=== PATIENT | female | born 1975 | race Caucasian/White ===

== ENCOUNTER 2019-11-23 17:27 | Emergency (ER) | payer SELFPAY ==
[~2019-11-23] VITALS: Ht 162.6 cm; Wt 61.2 kg
[2019-11-23 17:38] VITALS: BP 116/77
[2019-11-23] MEDS ORDERED: diphenhydrAMINE HCL 50 MG CAPSULE ONE (17:44)
--- NOTE | 2019-11-23 17:59 | NUR ---
Patient discharged to home in stable condition. Written and verbal after care instructions given. Patient verbalizes understanding of instruction.
[2019-11-23] MEDS ORDERED: diphenhydrAMINE HCL 50 MG CAPSULE PO ONE (18:00)
== END 2019-11-23 17:59 | disposition home or self-care (01) ==
LOC: ER 17:30
DX: S40.861A Insect bite (nonvenomous) of right upper arm, initial encounter (principal); W57.XXXA Bitten or stung by nonvenomous insect and other nonvenomous arthropods, initial encounter; Y93.89 Activity, other specified; Y92.89 Other specified places as the place of occurrence of the external cause; Y99.8 Other external cause status
CPT/HCPCS: 99282; Q0163